=== PATIENT | male | born 1965 | race Caucasian/White ===

== ENCOUNTER 2020-01-18 11:04 | Emergency (ER) | payer BC, SELFPAY ==
[2020-01-18 11:06] VITALS: BP 149/108; PULSE 108; PULSE 99; RESP 17; RESP 18; TEMP 36.7; O2SAT 95; O2SAT 96; BMI 38.9
--- NOTE | 2020-01-18 11:17 | VDLE_ITS ---
Reason For Study: SWELLING Procedure LEFT Exam performed portable in ED. GSV is normal. A preliminary report was called and/or faxed CFV is compressible, spontaneous, phasic, to ED. competent, and demonstrates normal augmentation. FV is compressible, spontaneous, phasic, competent and demonstrates normal augmentation. POP V is compressible, spontaneous, phasic, competent and demonstrates normal augmentation. T/P Trunk is compressible. PTV is compressible. LT PerV is compressible. Interpretation Summary Deep veins of the left lower extremity are patent and compressible segmentally. There is no evidence of left lower extremity deep vein thrombosis. Valvular competence appears intact within the proximal deep venous system on the left . The left great saphenous vein appears patent and compressible segmentally. Ordering Physician: Kimmie Damon Referring Physician: [place] [place] Performed By: Chery Maharaj, PREM, RVT
--- NOTE | 2020-01-18 11:18 | ED.DCSUM_ITS ---
History of Present Illness Chief Complaint: Lower Extremity Injury Informant: Patient Onset: Weeks Context: Gradual Onset, Sudden Onset Current Severity: Mild Maximum Severity: Moderate Narrative: Patient presents from urgent care to rule out DVT. He was kicked in the left lower shrestha by a horse in early December. Patient states the area never really bruised, just turned red. He was seen at the [facility] last week where x-rays revealed no fracture. He has noted increased swelling to his leg and went to urgent care today. He denies chest pain. He has chronic shortness of breath with COPD, unchanged from baseline. Blood sugars have been normal. - Past Medical History (1) Hypothyroid Status: Chronic (2) Diabetes Status: Chronic (3) COPD (chronic obstructive pulmonary disease) Status: Chronic Past Medical History - Allergies and Home Meds Allergies/Adverse Reactions: Allergies Sulfa (Sulfonamide Antibiotics) Allergy (Verified 01/18/20 11:05) Hives Primary Care Physician: [facility],[place] [Primary Care Provider] - Prior records reviewed: Yes Review of Systems General: Denies: Chills, Fever Eyes: Denies: Visual changes - bilaterally ENT: Denies: Bilateral ear pain Cardiovascular: Denies: Chest pain Respiratory: Reports: Dyspnea - Chronic secondary to COPD, unchanged.. Denies: Cough Gastrointestinal: Denies: Abdominal pain, Nausea, Vomiting, Diarrhea Musculoskeletal: Reports: Swelling, Extremity Pain Skin: Denies: Rash Neurological: Denies: Headache Hematologic: Denies: Easy bruising, Easy bleeding Allergy: Denies: Uticaria Physical Exam Vital Signs/Narrative: Vital Signs Temp Pulse Resp BP Pulse Ox 01/18/20 11:06 98.1 F 99 18 149/108 H 96 Inital Vital Signs reviewed: Yes General: Well nourished, Well developed Head: Normocephalic ENT: Moist mucous membranes Neck: Supple Cardiovascular: Regular rate, Regular rhythm Respiratory: No distress, CTA bilaterally Abdomen: Soft, Nontender Extremities: - - Minimal erythema to the anterior left lower shrestha. Mild edema with some venous congestion to the left leg. Strong distal pulses. No focal tenderness of the joints. Skin: - - Scattered erythematous lesions along the lateral portion of the left foot. No vesicles. Neurological: Alert, Oriented x3 Psychological: Normal affect Diagnostic/Tx/Re-eval Venous ultrasound of the left lower extremity is unremarkable. No evidence of DVT. - Medical Decision Making Venous ultrasound of the leg is unremarkable. He does have slight distention to some superficial veins. I recommended compression sock and elevating his feet. [facility] Disposition - Plan for ED Patient: Disposition: Home or Assisted Living Diagnosis: Contusion, lower leg, Leg edema, left Instructions: ED EXTREMITY CONTUSION Lower, ED Peripheral Edema, Unilateral [facility]: [facility] [Primary Care Provider] - As Needed
== END 2020-01-18 13:06 | disposition home or self-care (01) ==
PROVIDERS: Emergency Provider Emergency Medicine
DX: S80.12XA Contusion of left lower leg, initial encounter (principal); W55.12XA Struck by horse, initial encounter; Y93.9 Activity, unspecified; Y92.9 Unspecified place or not applicable; R60.0 Localized edema; J44.9 Chronic obstructive pulmonary disease, unspecified
CPT/HCPCS: 93971; 99282; A4216

== ENCOUNTER 2023-02-28 10:30 | Outpatient (RCR) | payer OTHER, SELFPAY ==
--- NOTE | 2022-11-28 15:17 | HP.PTEVAL_ITS ---
Patient's Visit Information LEONOR KLEIN Jr. is a 57 year old M referred to Physical Therapy by NEIL CAREY with a diagnosis of L RCR two tendon 4.29.23, bicep tenodesis, acriomoplasty. Date of Evaluation: 11/28/22 Physical Therapist: Everton Castellanos, PT, SCOTT, SCS, CSCS - Visit Plan Frequency: 1x/Week Duration: 2 Months Plan: Plan to see initial 1xweek if he continues to improve. If not then 2xweek. 3-4 weeks phase 1, 4 weeks phase 2 then phase 3. - Subjective Mr. Klein has had a long standing history of bilateral arm pain. 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 He said that he sought the help of Dr Carey who performed a L RCR repair, bicep tenodesis, distal clavicle excision and acromioplasty. - Pain Left Shoulder Pain Intensity (Out of 10): 3 Pain Intensity Range: 2, 8 - Objective Incision site is well healed no seepage or drainage. 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 His passive ROM is 90 Flexion, 90 abduction and ext. 45 degrees. Internal rotation and MMT was deferred secondary healing process. We discusses at great lengths all the items that were repaired the importance of getting to the 14-16 week for increased healing. We reviewed the Phase 1 HEP and he said he had help at home to help with phase 1. Currently sleeping 2hours at time then self medicates to sleep again. - Balance/Special Test Scores Quick DASH Score: 45.4525 - Goals Goal 1:: Return Demo Phase 1 HEP Goal Time Frame: 1 Week Goal 2:: Understand the healing process of a RCR repair with extensive work. Goal Time Frame: 1 Week Goal 3:: Improve ROM 10% Goal Time Frame: 2 Weeks Goal 4:: Strengthen as appropriate Goal Time Frame: 4-6 Weeks - Rehabilitation Potential Physical Therapy Diagnosis: Same Rehabilitation Potential: Good - Anticipated Interventions Patient/Client Instruction: Educate patient on: Condition, Plan of Care, Risk Factors For the Purpose of:: To decrease pain, To increase ROM, To improve ability to perform ADL's, To assume or resume ADL's Therapeutic Exercise to Include: Strength training, Endurance training, Flexibilty training, Passive ROM, Active ROM For the Purpose of:: To decrease pain, To increase ROM, To increase flexibility/ROM, To assume or resume ADL's Functional Training to Include: Functional work training For the Purpose of:: To decrease pain, To increase ROM, To increase flexibility/ROM, To assume or resume ADL's Manual Therapy Techniques to Include: Mobilization, Passive ROM For the Purpose of:: To decrease pain, To increase ROM, To increase flexibility/ROM, To assume or resume ADL's IF ES: Yes - To control pain if needed Thank you for the opportunity to evaluate your patient. For Medicare and Medicare HMO plans, please review the plan of care and approve it. It will need to be FAXED BACK to us at [phone] for Medicare purposes. For Medicare only, by signing this I certify the plan of care. Please let me know if there are questions or concerns regarding this plan of care. Physician Signature: Date:
--- NOTE | 2023-02-28 11:18 | HP.PTDCSUM_ITS ---
Discharge Summary D/C summary: It has been my pleasure to treat LEONOR ZHONG Jr. referred by NEIL JIMÉNEZ, with the diagnosis of L RCR two tendon 4, bicep tenodesis, acriomoplasty for a total of 14 visit(s). Discharge Date: 02/28/23 Please see the following information for a summary of their discharge status. Subjective Subjective: Sorry I'm running late my dad last week and I had to return a truck. I'm doing well and see the doctor tomorrow. Pain Left Shoulder: Pain Intensity (Out of 10): 0 Overall Improvement % Improvement: 90 Objective Objective/Function: 27.9 L ext int 33.6 27.3 R ext int 38.1 ROM WFLS 180 shoulder flexion with over pressure Internal rotation T6 B Goals Goal 1:: Return Demo Phase 1 HEP Goal Progress: Goal Met Goal 2:: Understand the healing process of a RCR repair with extensive work. Goal Progress: Goal Met Goal 3:: Improve ROM 10% Goal Progress: Goal Met Goal 4:: Strengthen as appropriate Goal Progress: Goal Met Plan Plan: Discharge to a phase three HEP 2xweek. D/C Information Discharge Comments: Following up with surgeon tomorrow. I have discharged him to a phase 3 strengthen program. Would like to have his right shoulder done next year. 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 d/c sentence: If there are questions or concerns regarding this patient's physical therapy, please feel free to call me at [phone]. Thank you for the referral of this patient. Sincerely, Everton Castellanos, PT, SCOTT, SCS, CSCS Balance/Gait/Functional tests Balance/Special Test Scores Quick DASH Score: 11.3625 Improvement % Improvement: 90
== END 2023-02-28 12:20 | disposition home or self-care (01) ==
LOC: PT 10:30
DX: Z98.890 Other specified postprocedural states (principal)
CPT/HCPCS: 97014; 97110; 97140; 97162; 97164; G0283